=== PATIENT | male | born 1990 | race Asian ===

== ENCOUNTER 2019-06-11 08:50 | Emergency (ER) | payer OTHER ==
[~2019-06-11] VITALS: Ht 188 cm; Wt 90.9 kg
[2019-06-11 09:42] LABS: PLATELET COUNT 187 K/uL (142-355)
[2019-06-11 10:31] LABS: POTASSIUM 4.3 mmol/L (3.6-5.2)
[2019-06-11 11:00] VITALS: BP 125/88; TEMP 97.7
== END 2019-06-11 11:00 | disposition home or self-care (01) ==
LOC: ED 08:50
PROVIDERS: Family Medicine
DX: K08.89 Other specified disorders of teeth and supporting structures (principal); K04.7 Periapical abscess without sinus; R80.9 Proteinuria, unspecified; F17.210 Nicotine dependence, cigarettes, uncomplicated
CPT/HCPCS: 80053; 81000; 84550; 85027; 99283

== ENCOUNTER 2019-08-21 15:45 | Emergency (ER) | payer OTHER ==
[~2019-08-21] VITALS: Ht 188 cm; Wt 89.4 kg
[2019-08-21 19:34] VITALS: BP 112/74; TEMP 98.8
== END 2019-08-21 19:34 | disposition home or self-care (01) ==
LOC: ED 15:45
DX: S00.83XA Contusion of other part of head, initial encounter (principal); Y04.0XXA Assault by unarmed brawl or fight, initial encounter; Y93.89 Activity, other specified; Y92.89 Other specified places as the place of occurrence of the external cause
CPT/HCPCS: 96372; 99283; J1885

== ENCOUNTER 2019-10-16 12:05 | Emergency (ER) | payer OTHER ==
[~2019-10-16] VITALS: Ht 188 cm; Wt 90.7 kg
[2019-10-16 12:25] VITALS: TEMP 98.1
[2019-10-16 14:35] VITALS: BP 146/96
== END 2019-10-16 14:37 | disposition home or self-care (01) ==
LOC: ED 12:05
DX: R51 Headache (principal); M51.26 Other intervertebral disc displacement, lumbar region
CPT/HCPCS: 96372; 99283; J1885

== ENCOUNTER 2019-11-05 11:06 | Emergency (ER) | payer OTHER ==
[~2019-11-05] VITALS: Ht 188 cm; Wt 90.7 kg
[2019-11-05 13:35] VITALS: TEMP 97.9
[2019-11-05 15:13] VITALS: BP 117/89
== END 2019-11-05 15:13 | disposition home or self-care (01) ==
LOC: ED 11:06
DX: M51.17 Intervertebral disc disorders with radiculopathy, lumbosacral region (principal)
CPT/HCPCS: 96372; 99283; J1885

== ENCOUNTER 2020-05-25 16:44 | Emergency (ER) | payer OTHER ==
[~2020-05-25] VITALS: Ht 188 cm; Wt 90.7 kg
[2020-05-25 18:00] VITALS: BP 130/79; TEMP 98.3
== END 2020-05-25 18:05 | disposition home or self-care (01) ==
LOC: ED 16:44
DX: M54.5 Low back pain (principal); G89.29 Other chronic pain; M54.16 Radiculopathy, lumbar region
CPT/HCPCS: 96372; 99283; J1885; J2930

== ENCOUNTER 2020-06-18 09:26 | Emergency (ER) | payer OTHER ==
[~2020-06-18] VITALS: Ht 188 cm; Wt 90.7 kg
[2020-06-18 09:34] VITALS: TEMP 98.9
[2020-06-18 09:58] LABS: PLATELET COUNT 174 K/uL (142-355)
[2020-06-18 10:07] LABS: SODIUM 143 mmol/L (136-145)
[2020-06-18 10:55] VITALS: BP 146/88
== END 2020-06-18 10:55 | disposition home or self-care (01) ==
LOC: ED 09:26
PROVIDERS: Hospitalist
DX: R07.89 Other chest pain (principal); G89.29 Other chronic pain; M54.89 Other dorsalgia
CPT/HCPCS: 80053; 82550; 83880; 84484; 85027; 85610; 85730; 93005; 96375; 99284; J1885; J2930

== ENCOUNTER 2020-08-07 07:51 | Emergency (ER) | payer OTHER ==
[~2020-08-07] VITALS: Ht 188 cm; Wt 96.6 kg
[2020-08-07 09:40] VITALS: BP 153/104; TEMP 99.1
== END 2020-08-07 09:40 | disposition home or self-care (01) ==
LOC: ED 07:51
DX: M51.16 Intervertebral disc disorders with radiculopathy, lumbar region (principal)
CPT/HCPCS: 96372; 99283; J1885

== ENCOUNTER 2020-08-30 08:36 | Observation (INO) | payer OTHER ==
[2020-08-30] VITALS (10 sets, daily range): BP systolic 124–210; BP diastolic 97–154; TEMP 97.6–99.2; Ht 188 cm; Wt 96.9 kg
[~2020-08-30] VITALS: Ht 188 cm; Wt 96.9 kg
[2020-08-30 09:31] LABS: PLATELET COUNT 173 K/uL (142-355)
[2020-08-30 09:45] LABS: POTASSIUM 4.1 mmol/L (3.6-5.2); SODIUM 139 mmol/L (136-145)
[2020-08-30 09:53] LABS: PARTIAL THROMBOPLASTIN TIME 25.9 SECONDS (24.5-33.6)
[2020-08-31] VITALS: BP 123/86; TEMP 98.8
[2020-08-31 04:00] VITALS: BP 132/99; TEMP 98.3
[2020-08-31 04:54] LABS: POTASSIUM 3.7 mmol/L (3.6-5.2)
[2020-08-31] MEDS ORDERED: AMLODIPINE BESYLATE PO (08:27)
== END 2020-08-31 11:30 | disposition home or self-care (01) ==
LOC: ED 08:36 → MED/SURG 11:09
PROVIDERS: ADMIT Internal Medicine; ATTEND Internal Medicine
DX: R07.89 Other chest pain (principal); I10 Essential (primary) hypertension
CPT/HCPCS: 36415; 80048; 80053; 80307; 81000; 82550; 84484; 85027; 85610; 85730; 87635; 93005; 96360; 96365; 96366; 96374; 96375; 99220; 99284; G0378; J0360; J1650; J1885; J2270; J3490; U0003

== ENCOUNTER 2021-06-22 09:07 | Emergency (ER) | payer OTHER ==
[~2021-06-22] VITALS: Ht 188 cm; Wt 96.6 kg
[~2021-06-22 09:07] MED LIST: AMLODIPINE BESYLATE PO
[2021-06-22 09:20] VITALS: BP 142/75; TEMP 97
[2021-06-22 09:54] LABS: PLATELET COUNT 201 K/uL (142-355)
[2021-06-22 10:01] LABS: POTASSIUM 4.6 mmol/L (3.6-5.2)
== END 2021-06-22 10:28 | disposition home or self-care (01) ==
LOC: ED 09:07
PROVIDERS: Emergency Medicine Emergency Medical Services
DX: N28.9 Disorder of kidney and ureter, unspecified (principal); R60.0 Localized edema
CPT/HCPCS: 80053; 85027; 99283

== ENCOUNTER 2021-07-08 08:35 | Emergency (ER) | payer OTHER ==
[~2021-07-08] VITALS: Ht 188 cm; Wt 90.7 kg
[2021-07-08 08:49] VITALS: BP 130/86; TEMP 98.6
== END 2021-07-08 10:10 | disposition home or self-care (01) ==
LOC: ED 08:35
PROC: 2W3MX1Z Immobilization of Left Lower Extremity using Splint (ICD-10-PCS; principal; 2021-07-08)
DX: M25.562 Pain in left knee (principal); M25.462 Effusion, left knee; X50.1XXA Overexertion from prolonged static or awkward postures, initial encounter; Y93.79 Activity, other specified sports and athletics; Y92.89 Other specified places as the place of occurrence of the external cause
CPT/HCPCS: 96372; 99283; J1885; J2930

== ENCOUNTER 2021-08-14 10:31 | Emergency (ER) | payer OTHER ==
[~2021-08-14] VITALS: Ht 188 cm; Wt 90.7 kg
[2021-08-14 11:58] VITALS: BP 145/90; TEMP 98.2
== END 2021-08-14 11:59 | disposition home or self-care (01) ==
LOC: ED 10:31
PROC: 0HQDXZZ Repair Right Lower Arm Skin, External Approach (ICD-10-PCS; principal; 2021-08-14)
DX: S51.811A Laceration without foreign body of right forearm, initial encounter (principal); S50.11XA Contusion of right forearm, initial encounter; X99.8XXA Assault by other sharp object, initial encounter; Y92.89 Other specified places as the place of occurrence of the external cause
CPT/HCPCS: 90471; 90715; 99283; J7040

== ENCOUNTER 2021-10-02 20:30 | Emergency (ER) | payer OTHER ==
[~2021-10-02] VITALS: Ht 188 cm; Wt 83.9 kg
[2021-10-02 21:35] VITALS: BP 124/67; TEMP 97.9
== END 2021-10-02 21:40 | disposition home or self-care (01) ==
LOC: ED 20:30
DX: S33.5XXA Sprain of ligaments of lumbar spine, initial encounter (principal); G44.209 Tension-type headache, unspecified, not intractable; V40.5XXA Car driver injured in collision with pedestrian or animal in traffic accident, initial encounter; Y92.410 Unspecified street and highway as the place of occurrence of the external cause
CPT/HCPCS: 96372; 99282; J1885

== ENCOUNTER 2022-05-07 19:37 | Emergency (ER) | payer OTHER ==
[~2022-05-07] VITALS: Ht 188 cm; Wt 77.1 kg
[2022-05-07 20:20] LABS: PLATELET COUNT 143 K/uL (142-355)
[2022-05-07 20:31] LABS: POTASSIUM 5.1 mmol/L (3.6-5.2)
[2022-05-07 22:51] VITALS: BP 169/109; TEMP 98.6
== END 2022-05-07 22:54 | disposition short-term general hospital (02) ==
LOC: ED 19:37
PROVIDERS: Emergency Medicine
DX: N17.8 Other acute kidney failure (principal); R79.89 Other specified abnormal findings of blood chemistry; R94.4 Abnormal results of kidney function studies; I10 Essential (primary) hypertension; Z11.52 Encounter for screening for COVID-19
CPT/HCPCS: 36415; 80053; 82150; 83690; 85027; 87635; 93005; 96374; 96375; 96376; 99284; J0360; J2405; U0003

== ENCOUNTER 2022-05-20 14:13 | Emergency (ER) | payer OTHER ==
[~2022-05-20] VITALS: Ht 188 cm; Wt 77.1 kg
[2022-05-20 15:31] LABS: PLATELET COUNT 220 K/uL (142-355)
[2022-05-20 15:45] LABS: POTASSIUM 3.7 mmol/L (3.6-5.2)
[2022-05-20] MEDS ORDERED: AMLODIPINE BESYLATE PO (20:10)
[2022-05-20] MEDS ORDERED: CARV12.5 PO (20:11)
[2022-05-20] MEDS ORDERED: CALC ACETATE668 MG PO (20:12)
[2022-05-20] MEDS ORDERED: LOSA50TA PO (20:13)
[2022-05-20] MEDS ORDERED: HYDRALAZINE HY100 MG PO (20:14)
[2022-05-20 20:42] VITALS: BP 137/89; TEMP 97.3
== END 2022-05-20 20:42 | disposition home or self-care (01) ==
LOC: AMB 14:13 → ED 14:13
PROVIDERS: Emergency Medicine
DX: Z98.890 Other specified postprocedural states (principal); S37.012A Minor contusion of left kidney, initial encounter; N18.6 End stage renal disease; Z99.2 Dependence on renal dialysis; X58.XXXA Exposure to other specified factors, initial encounter; Y92.89 Other specified places as the place of occurrence of the external cause
CPT/HCPCS: 36415; 80053; 85027; 96374; 96375; 96376; 99284; J2270; J2405; Q9963

== ENCOUNTER 2022-06-21 20:22 | Emergency (ER) | payer OTHER ==
[~2022-06-21] VITALS: Ht 188 cm; Wt 80.3 kg
[~2022-06-21 20:22] MED LIST changes: +CALC ACETATE668 MG PO; +CARV12.5 PO; +HYDRALAZINE HY100 MG PO; +LOSA50TA PO
[2022-06-21 20:27] VITALS: BP 143/92; TEMP 98.9
== END 2022-06-21 22:06 | disposition home or self-care (01) ==
LOC: ED 20:22
DX: R20.2 Paresthesia of skin (principal); N18.6 End stage renal disease; Z99.2 Dependence on renal dialysis
CPT/HCPCS: 99282

== ENCOUNTER 2022-08-25 15:50 | Emergency (ER) | payer OTHER ==
[~2022-08-25] VITALS: Ht 188 cm; Wt 77.1 kg
[2022-08-25 16:00] VITALS: BP 141/94; TEMP 98.6
[2022-08-25 16:40] LABS: PLATELET COUNT 154 K/uL (142-355)
[2022-08-25 17:01] LABS: POTASSIUM 4.3 mmol/L (3.6-5.2)
== END 2022-08-25 17:56 | disposition home or self-care (01) ==
LOC: ED 15:50
PROVIDERS: Emergency Medicine
DX: R53.81 Other malaise (principal); R20.2 Paresthesia of skin; N18.6 End stage renal disease; Z99.2 Dependence on renal dialysis
CPT/HCPCS: 80048; 85027; 99282

== ENCOUNTER 2022-09-04 18:49 | Emergency (ER) | payer OTHER ==
[~2022-09-04] VITALS: Ht 188 cm; Wt 77.1 kg
[2022-09-04 19:10] VITALS: TEMP 98.7
[2022-09-04 22:50] VITALS: BP 133/89
== END 2022-09-04 22:50 | disposition home or self-care (01) ==
LOC: ED 18:49
DX: S39.82XA Other specified injuries of lower back, initial encounter (principal); W01.0XXA Fall on same level from slipping, tripping and stumbling without subsequent striking against object, initial encounter; Y92.89 Other specified places as the place of occurrence of the external cause
CPT/HCPCS: 96372; 99283; J1885

== ENCOUNTER 2023-05-08 10:25 | Emergency (ER) | payer OTHER ==
[~2023-05-08] VITALS: Ht 188 cm; Wt 74.8 kg
[2023-05-08 10:25] VITALS: TEMP 98.7
[2023-05-08 11:02] LABS: PLATELET COUNT 119 K/uL (142-355)
[2023-05-08 11:18] LABS: POTASSIUM 5.2 mmol/L (3.6-5.2)
[2023-05-08 12:40] VITALS: BP 158/102
== END 2023-05-08 13:30 | disposition short-term general hospital (02) ==
LOC: ED 10:25
PROVIDERS: Family Medicine
DX: R25.9 Unspecified abnormal involuntary movements (principal); N18.9 Chronic kidney disease, unspecified; I10 Essential (primary) hypertension
CPT/HCPCS: 80053; 84484; 85027; 93005; 99283